=== PATIENT | female | born 1965 | race Caucasian/White ===

== ENCOUNTER 2017-05-11 07:23 | Emergency (ER) | payer OTHER ==
--- NOTE | 2017-05-11 07:40 | ED Physician Documentation ---
Lower Extremity Injury - HISTORIAN Historian: patient - HPI Chief Complaint: Hip Injury Additional Information: Patient states that she tripped over her felt last noc [place]. Landed on her right hip and had some mild pain associated with it. This AM when try to get up from the commode she had more severe pain lost her balance and feel on her right hip again. She has continued to have pain in the hip and difficulties in getting up and was brought to the ED for further evaluation. Where: other ([facility]) Severity: moderate Context: fall Modifying Factors:: pain on movement - ROS CONST: no problems CVS/RESP: none - PAST HX Past History: other (MS) Immunizations: tetanus Allergies/Adverse Reactions: Allergies Allergy/AdvReac Type Severity Reaction Status Date / Time egg Allergy Unknown Verified 05/11/17 07:45 No Known Drug Allergies Allergy Verified 05/11/17 07:45 Home Medications: Ambulatory Orders Medication Instructions Recorded Buprenorphine HCl/Naloxone HCl 05/11/17 [Suboxone 8 mg-2 mg Sl Film] Duloxetine HCl [Duloxetine HCl] 60 mg PO QDAY 05/11/17 Levothyroxine Sodium [Synthroid] 50 mcg PO QDAY 05/11/17 Lisdexamfetamine Dimesylate 70 mg PO QDAY 05/11/17 [Vyvanse] Naltrexone HCl [Revia] 50 mg PO QDAY 05/11/17 Pregabalin [Lyrica] 75 mg PO BID 05/11/17 - SOCIAL HX Smoking History: non-smoker Alcohol Use: none Drug Use: other (opiates) - FAMILY HX Family History: none - VITAL SIGNS Vital Signs: Vital Signs Temp Pulse Resp BP Pulse Ox 98.2 F 104 H 16 134/84 97 05/11/17 07:23 05/11/17 07:28 05/11/17 07:23 05/11/17 07:28 05/11/17 07:23 - REVIEWED ASSESSMENTS Nursing Assessment Reviewed: Yes Vitals Reviewed: Yes ED Results Lab/Radiology - Radiology Radiology Impressions: Examination: Plain film pelvis/hip History: Hip discomfort Comparison exams: None provided Findings: 3 views of the pelvis and hip demonstrates normal cortical margins. No fracture. No dislocation. Acetabular spurring. Pelvic phleboliths. Pubic symphysis degenerative changes. Linear ossific density adjacent to the greater wing of the right ilium. No soft tissue abnormality. Impression: Degenerative spurring. No acute hip osseous abnormality. Linear ossific density adjacent to the greater wing of the right ilium - degenerative spurring versus avulsion. Correlate with point to patient discomfort. - Orders Orders: ED Orders Category Date Time Status RT HIP 2VIEW COMPLETE [RAD] Routine Exams 05/11/17 Completed Diph,Pertuss(Acell),Tet Vac/Pf [Adacel] Med 05/11/17 08:00 Ordered 0.5 ml IM 1T Ibuprofen [Advil] Med 05/11/17 07:45 Discontinued 600 mg PO NOW ONE Lower Extremities Injury Phy - Physical Exam General Appearance: alert, mild distress Hips: right hip: bone tenderness, limited range of motion, pain, left hip: non- tender, normal inspection, normal range of motion, no evidence of injury, N/A: deformity (none), ecchymosis (none), swelling (none) Legs: bilateral: non-tender, normal inspection, normal range of motion, no evidence of injury Knees: right: soft tissue tenderness (mild abrasion ot he knee), bilateral: non- tender, normal inspection, normal range of motion, no evidence of injury, N/A: swelling (none) Ligaments: No: pain on anterior drawer, pain on posterior drawer, pain on medial stress, laxity on medial stress, pain on lateral stress, laxity on lateral stress Gait: limited by pain Neuro/Vascular/Tendon: motor nml, sensation nml Head/ENT: nml inspection Neck/Back: nml inspection, non-tender Resp/CVS: chest non-tender, breath sounds nml, heart sounds nml, no resp. distress, lungs clear, reg. rate & rhythm Abdomen: No: pelvis stable (pelvis tenderness with palpation) Discharge Clincal Impression: Contusion Qualifiers: Encounter type: initial encounter Contusion area: hip Laterality: right Qualified Code(s): S70.01XA - Contusion of right hip, initial encounter Referrals: Augusto Wallace MD [Primary Care Provider] - 2 Days Additional Instructions: Use a warm/cool compress to the hip area. Take Ibuprofen 600mg up to 4 times a day with food as needed for pain. Consider using a cane to walk with if your balance is unsteady. If you have any further problems to see Dr Shoemaker or return to the ED. Condition: Stable Disposition: 01 HOME, SELF-CARE Decision to Admit: NO Date of Decison to Admit: 05/11/17 Decision Time: 08:31
[2017-05-11] MEDS ORDERED: IBUPROFEN 200 MG TABLET PO ONE (07:45)
[2017-05-11] MEDS ORDERED: DIPH,PERTUSS(ACELL),TET VAC/PF 0.5 ML DISP.SYRIN IM ONE (07:51)
[2017-05-11] MEDS ORDERED: DIPH,PERTUSS(ACELL),TET VAC/PF 0.5 ML DISP.SYRIN IM SCH (08:00)
--- NOTE | 2017-05-11 08:37 | Diagnostic Imaging Report ---
[facility] [id number] [facility].[address] [id number] Report Submission Date: May 11, 2017 8:18:00 AM [employer] Patient Study Name: RILEY BLUM Date: May 11, 2017 7:53:52 AM [employer] Modality Type: CR Gender: F Description: PELVIS : 69 Institution: [facility] Physician: ILIANA RAMIREZ Examination: Plain film pelvis/hip History: Hip discomfort Comparison exams: None provided Findings: 3 views of the pelvis and hip demonstrates normal cortical margins. No fracture. No dislocation. Acetabular spurring. Pelvic phleboliths. Pubic symphysis degenerative changes. Linear ossific density adjacent to the greater wing of the right ilium. No soft tissue abnormality. Impression: Degenerative spurring. No acute hip osseous abnormality. Linear ossific density adjacent to the greater wing of the right ilium - degenerative spurring versus avulsion. Correlate with point to patient discomfort. Electronically signed on May 11, 2017 8:18:00 AM [employer] by: Aaron ZARAGOZA
[2017-05-11 08:53] VITALS: BP 137/83
== END 2017-05-11 08:43 | disposition home or self-care (01) ==
LOC: ED 07:23
DX: S70.01XA Contusion of right hip, initial encounter (principal); W19.XXXA Unspecified fall, initial encounter; Y93.9 Activity, unspecified; Y99.9 Unspecified external cause status
CPT/HCPCS: 73502; 90471; 90715; 99283